=== PATIENT | male | born 1965 | race Caucasian/White ===

== ENCOUNTER 2016-07-05 09:54 | Emergency (ER) | payer OTHER ==
[~2016-07-05] VITALS: Ht 188 cm; Wt 123.5 kg
[~2016-07-05 09:54] MED LIST: ASPIR 8181 M1 PO; LISINOPRIL40 MG PO; LO-DOSE ASPIRIN81 M1 PO; NIFEDIPINE ER30 MG PO; Z-SLEEP50 MG/30 M PO
[2016-07-05 10:28] LABS: HEMATOCRIT 54.8 % (38.0-50.0); MCH 27.6 PG (29.0-34.0); MCHC 33.6 G/DL (30.0-36.0); MCV 82.3 FL (86-99); PLATELET COUNT 208 K/uL (156-360); RBC DIS.WIDTH-CV 14.8 % (11.8-14.6); RBC DIS.WIDTH-SD 42.4 % (39-53); RED BLOOD COUNT 6.66 M/uL (4.00-5.50)
[2016-07-05 10:37] LABS: CHLORIDE 102 mEq/L (99-109); POTASSIUM 4.4 mEq/L (3.7-5.4); SODIUM 136 mEq/L (136-147)
[2016-07-05 10:39] LABS: GLUCOSE 98 mg/dL (70-99)
[2016-07-05 10:40] LABS: ANION GAP 11 MEQ/L (2-14)
[2016-07-05 10:43] LABS: GFR ESTIMATE (CALCULATED) > 59 mL/min/
[2016-07-05 10:44] LABS: UREA NITROGEN (BUN) 15 mg/dL (9-23)
[2016-07-05 10:51] LABS: TROP-I INTERPRETATION NEGATIVE; TROPONIN-I < 0.01 ng/mL (0.0-0.30)
[2016-07-05] MEDS ORDERED: ADVIL PM1 TABLET PO (11:50)
[2016-07-05] MEDS ORDERED: ZESTRIL20 MG PO (11:51)
[2016-07-05 12:58] LABS: D-DIMER ELISA < 0.15 mg/L FEU (< 0.57)
[2016-07-05 13:06] LABS: TROP-I INTERPRETATION NEGATIVE; TROPONIN-I < 0.01 ng/mL (0.0-0.30)
[2016-07-05 14:33] VITALS: BP 130/87
== END 2016-07-05 14:34 | disposition home or self-care (01) ==
LOC: EME 09:54
PROVIDERS: Physician Assistant
DX: R07.89 Other chest pain (principal); R20.2 Paresthesia of skin; R11.0 Nausea; R61 Generalized hyperhidrosis; R06.02 Shortness of breath; I10 Essential (primary) hypertension; Z79.82 Long term (current) use of aspirin
CPT/HCPCS: 71020; 80048; 84484; 85027; 85379; 93005; 99281; 99284

== ENCOUNTER 2017-05-01 17:39 | Emergency (ER) | payer OTHER ==
[~2017-05-01] VITALS: Ht 188 cm; Wt 121.7 kg
[~2017-05-01 17:39] MED LIST changes: +ADVIL PM1 TABLET PO; +ZESTRIL20 MG PO
[2017-05-01 17:48] VITALS: BP 140/104
== END 2017-05-01 18:16 | disposition left against medical advice (07) ==
LOC: EME 17:39
DX: R10.9 Unspecified abdominal pain (principal); M54.5 Low back pain; Z53.21 Procedure and treatment not carried out due to patient leaving prior to being seen by health care provider
CPT/HCPCS: 80053; 81003; 85027

== ENCOUNTER 2017-05-27 14:46 | Emergency (ER) | payer BC ==
[~2017-05-27] VITALS: Ht 188 cm; Wt 122.7 kg
[2017-05-27 15:19] LABS: BASOPHIL (%) 0.7 % (0-1); BASOPHIL COUNT 0.1 K/uL (0-0.1); EOSINOPHIL (%) 2.6 % (0-5); EOSINOPHIL COUNT 0.2 K/uL (0-0.3); HEMATOCRIT 50.9 % (38.0-50.0); HEMOGLOBIN 17.6 G/DL (12.5-16.6); IMMATURE GRANULOCYTE (%) 0.9 % (0.0-0.7); LYMPHOCYTE (%) 28.1 % (15-42); LYMPHOCYTE COUNT 2.3 K/uL (1.0-2.8); MCH 27.9 PG (29.0-34.0); MCHC 34.6 G/DL (30.0-36.0); MCV 80.8 FL (86-99); MONOCYTE (%) 7.2 % (3-12); MONOCYTE COUNT 0.6 K/uL (0-0.8); NEUTROPHIL (%) 60.5 % (45-76); PLATELET COUNT 167 K/uL (156-360); RBC DIS.WIDTH-SD 43.4 % (39-53); WHITE BLOOD COUNT 8.2 K/uL (4.1-10.2)
[2017-05-27 15:34] LABS: ALBUMIN 4.3 g/dL (3.2-4.8); CHLORIDE 103 mEq/L (99-109); POTASSIUM 3.9 mEq/L (3.7-5.4)
[2017-05-27 15:35] LABS: SODIUM 139 mEq/L (136-147)
[2017-05-27 15:37] LABS: GLUCOSE 130 mg/dL (70-99); TOTAL PROTEIN 6.7 g/dL (6.4-8.3)
[2017-05-27 15:39] LABS: TOTAL BILIRUBIN 0.7 mg/dL (0.0-1.0)
[2017-05-27 15:40] LABS: ALKALINE PHOSPHATASE 62 IU/L (3-129); CREATININE 0.9 mg/dL (0.6-1.3); GFR ESTIMATE (CALCULATED) > 59 mL/min/ (58.99-99999)
[2017-05-27 15:42] LABS: AST (GOT) 25 IU/L (2-34); UREA NITROGEN (BUN) 11 mg/dL (9-23)
[2017-05-27 15:43] LABS: ALT (GPT) 40 IU/L (3-49)
[2017-05-27 15:44] LABS: LIPASE 21 U/L (1.0-51.0)
[2017-05-27 16:38] LABS: APPEARANCE CLEAR ((CLEAR)); BILIRUBIN NEGATIVE; BLOOD NEGATIVE; COLOR STRAW ((YELLOW)); GLUCOSE (STRIP) NEGATIVE; KETONES NEGATIVE; LEUKOCYTES NEGATIVE; NITRITE NEGATIVE; PROTEIN (STRIP) NEGATIVE; SPECIFIC GRAVITY 1.008 (1.000-1.030); UCUL ADDED? NO; UROBILINOGEN 0.2 MG/DL (0.2-1.0)
[2017-05-27 17:47] VITALS: BP 124/76
== END 2017-05-27 17:49 | disposition home or self-care (01) ==
LOC: EME 14:46
PROVIDERS: Emergency Medicine
DX: R10.9 Unspecified abdominal pain (principal); I10 Essential (primary) hypertension; E78.5 Hyperlipidemia, unspecified; Z87.891 Personal history of nicotine dependence; Z79.82 Long term (current) use of aspirin; Z88.8 Allergy status to other drugs, medicaments and biological substances
CPT/HCPCS: 74177; 80053; 81003; 83690; 85025; 99281; 99284; J7030